=== PATIENT | female | born 1995 | race Caucasian/White ===

== ENCOUNTER 2017-11-28 14:18 | Emergency (ER) | payer BC, OTHER ==
[2017-11-28] MEDS ORDERED: PROMETHAZINE HCL INJ 25 MG/1 ML VIAL IV ONE (14:47)
[2017-11-28] MEDS ORDERED: NORMAL SALINE 1000 ML 1,000 ML IV ONE (14:48)
--- NOTE | 2017-11-28 14:51 | ER Document Report ---
ED General - General Chief Complaint: Nausea/Vomiting Stated Complaint: VOMITING Time Seen by Provider: 11/28/17 14:43 Mode of Arrival: Ambulatory Information source: Patient Notes: 22-year-old female presents emergency department with complaints of nausea and vomiting. Patient states that her symptoms started a week ago. Patient states that typically she has nausea and vomiting in the morning and it resolves as the day goes on. Patient states that today she has had nausea and vomiting since 5 AM. She is been unable to keep any food or fluids down. Patient feels dehydrated. Patient states that she is . She states that her last menstrual period was on October 10. Patient states that she thinks she is 7 weeks . Patient has not yet followed up with an [facility]. Patient denies any abdominal pain, vaginal bleeding, vaginal discharge, dysuria, hematuria, increased urgency or frequency. TRAVEL OUTSIDE OF THE [place] IN LAST 30 DAYS: No - HPI Onset: Last week Onset/Duration: Gradual Quality of pain: No pain Severity: None Pain Level: Denies Associated symptoms: Nausea, Vomiting Exacerbated by: Denies Relieved by: Denies Similar symptoms previously: Yes Recently seen / treated by doctor: No - Related Data Allergies/Adverse Reactions: Penicillins Allergy (Verified 11/28/17 14:49) Past Medical History - Social History Smoking Status: Former Smoker Family History: Reviewed & Not Pertinent Review of Systems - Review of Systems Constitutional: No symptoms reported EENT: No symptoms reported Cardiovascular: No symptoms reported Respiratory: No symptoms reported Gastrointestinal: Nausea, Vomiting Genitourinary: No symptoms reported Female Genitourinary: No symptoms reported Musculoskeletal: No symptoms reported Skin: No symptoms reported Hematologic/Lymphatic: No symptoms reported Neurological/Psychological: No symptoms reported -: Yes All other systems reviewed and negative Physical Exam - Vital signs Vitals: Temp Pulse Resp BP Pulse Ox 98.3 F 68 16 132/83 H 100 11/28/17 14:36 11/28/17 14:36 11/28/17 14:36 11/28/17 14:36 11/28/17 14:36 - General Notes: PHYSICAL EXAMINATION: GENERAL: Well-appearing, well-nourished and in no acute distress. HEAD: Atraumatic, normocephalic. EYES: Pupils equal round and reactive to light, extraocular movements intact, conjunctiva are normal. ENT: Nares patent, oropharynx clear without exudates. Moist mucous membranes. NECK: Normal range of motion, supple without lymphadenopathy LUNGS: Breath sounds clear to auscultation bilaterally and equal. No wheezes rales or rhonchi. HEART: Regular rate and rhythm without murmurs ABDOMEN: Soft, nontender, nondistended abdomen. No guarding, no rebound. No masses appreciated. Female : deferred Musculoskeletal: Normal range of motion, no pitting or edema. No cyanosis. NEUROLOGICAL: Cranial nerves grossly intact. Normal speech, normal gait. Normal sensory, motor exams PSYCH: Normal mood, normal affect. SKIN: Warm, Dry, normal turgor, no rashes or lesions noted. Course - Re-evaluation Re-evalutation: 11/28/17 16:08 Urinalysis obtained. No bacteriuria seen. On reevaluation, patient states that she is feeling better. I will discharge patient home with a prescription for Phenergan. I will provide the patient with [facility] follow-up. She is not currently having any abdominal pain, vaginal bleeding, vaginal discharge. I will have the patient follow-up with OB for care. Patient is agreeable with plan of care. - Vital Signs Vital signs: Temp Pulse Resp BP Pulse Ox 98.3 F 68 16 132/83 H 100 11/28/17 14:36 11/28/17 14:36 11/28/17 14:36 11/28/17 14:36 11/28/17 14:36 Discharge - Discharge Clinical Impression: Nausea and vomiting during Disposition: HOME, SELF-CARE Instructions: Antinausea Medication ([facility]) Prescriptions: Promethazine HCl [Phenergan 25 mg Tablet] 1 tab PO Q6H PRN #15 tablet PRN Reason: Referrals: TOSHIA SARABIA DO [ACTIVE STAFF] - Follow up as needed
[2017-11-28 15:21] LABS: APPEARANCE,URINE CLEAR; BILIRUBIN,URINE NEGATIVE (NEGATIVE); COLOR,URINE YELLOW; GLUCOSE, URINE NEGATIVE (NEGATIVE); KETONES,URINE NEGATIVE (NEGATIVE); LEUKOCYTE ESTERASE,URINE NEGATIVE (NEGATIVE); NITRITE,URINE NEGATIVE (NEGATIVE); PROTEIN,URINE NEGATIVE (NEGATIVE); URINE SPECIFIC GRAVITY 1.013; UROBILINOGEN,URINE NEGATIVE mg/dL (<2.0)
[2017-11-28 16:24] VITALS: BP 123/74
== END 2017-11-28 16:24 | disposition home or self-care (01) ==
LOC: ER 14:18
DX: O21.9 Vomiting of pregnancy, unspecified (principal); Z3A.01 Less than 8 weeks gestation of pregnancy; Z88.0 Allergy status to penicillin
CPT/HCPCS: 99283; 96361; 96374; 81001; J2550; J7030